=== PATIENT | male | born 1990 | race Caucasian/White ===

== ENCOUNTER 2024-03-31 12:17 | Outpatient (CLI) | payer OTHER, SELFPAY ==
[2024-03-31 13:51] LABS: Side 1 70; Side 2 76; Sperm Progressive Motility 50 % (31-34); Viscosity Semen Normal; Volume Semen 3.5 mL (2-5)
[2024-03-31 13:52] LABS: Sperm Immotility 45 % (50-60); Sperm Non-Progressive Motility 5 % (5-10); White Blood Count Semen 0-4 /hpf
== END 2024-03-31 12:18 | disposition home or self-care (01) ==
LOC: LAB 12:22
PROVIDERS: Family Provider Family Medicine; Visit Provider Nurse Practitioner Women's Health
DX: N46.9 Male infertility, unspecified (principal)
CPT/HCPCS: 80503; 89320